=== PATIENT | female | born 1955 | race African-American/Black ===

== ENCOUNTER → 2018-03-24 | Day surgery (SDC) | payer OTHER ==
--- NOTE | 2018-03-24 11:05 | RAD REPORT ---
EXAM DESCRIPTION: US - Guided FNA Non Breast - 03/24/2018 10:22 am CLINICAL HISTORY: Thyroid nodule. E04.1 COMPARISON: 02/24/2018 FINDINGS: Preoperative diagnosis: Dominant right thyroid nodule. Post operative diagnosis: Same. Conscious Sedation: None Fluoroscopy time: None Contrast used: None Estimated blood loss: Minimal Specimens:4 x 25 gauge FNA samples. The right neck was prepped and draped in the usual sterile fashion. 1% lidocaine was infiltrated into the subcutaneous tissues for local anesthesia. Real time ultrasound scanning of the thyroid demonstr ated a dominant nodule near the junction of the isthmus and right lobe. Under ultrasound guidance, us ing 25 gauge FNA needles, four specimens were obtained of this lesion and sent to pathology for evalu ation. There were no complications. IMPRESSION: Successful ultrasound-guided FNA right thyroid nodule.
== END ==
LOC: FNA 09:13
PROVIDERS: ATTEND Internal Medicine Endocrinology, Diabetes & Metabolism
PROC: 0G9H3ZX Drainage of Right Thyroid Gland Lobe, Percutaneous Approach, Diagnostic (ICD-10-PCS; principal; 2018-03-24)
PROC: BG44ZZZ Ultrasonography of Thyroid Gland (ICD-10-PCS; 2018-03-24)
DX: E04.1 Nontoxic single thyroid nodule (principal)
CPT/HCPCS: 76942; 88108; 88305